=== PATIENT | male | born 1990 | race Caucasian/White ===

== ENCOUNTER → 2022-05-18 | Outpatient (CLI) | payer BC, OTHER | LOC: EDSEX 11:10 → M LABSMTC 11:13 | PROVIDERS: ATTEND Anesthesiology | DX: Z01.818 Encounter for other preprocedural examination (principal); Z11.52 Encounter for screening for COVID-19 ==

== ENCOUNTER 2022-05-22 06:08 | Observation (INO) | payer BC, OTHER ==
[2022-05-22] VITALS (8 sets, daily range): BP systolic 102–106; BP diastolic 59–63
[~2022-05-22] VITALS: Ht 165.1 cm; Wt 82.0 kg
[2022-05-22] MEDS ORDERED: LR 1,000 ML IV SCH (06:40)
[2022-05-22] MEDS ORDERED: HEPARIN SOD (PORCINE) 5000UNITS/ML 1ML VIAL/SYRINGE SQ ONE (06:45)
[2022-05-22] MEDS ORDERED: ceFAZolin SOD 2 GM in IV 1 EA IV ONE ×2 (07:00→16:00)
[2022-05-22] MEDS ORDERED: BUPIVACAINE HCL 0.25% 10ML VIAL As Ordered ONE (07:16)
[2022-05-22] MEDS ORDERED: GENTAMICIN SULF 80MG/2ML VIAL As Ordered ONE (07:16)
[2022-05-22] MEDS ORDERED: BUPIVACAINE LIPOSOME/PF 1.3% 20ML VIAL (13.3MG/ML)(EXPAREL) As Ordered ONE (07:17)
[2022-05-22] MEDS ORDERED: propofoL 200 MG/20 ML VIAL As Ordered ONE (07:19)
[2022-05-22] MEDS ORDERED: fentaNYL 250 MCG/5 ML INJECTION As Ordered ONE (07:19)
[2022-05-22] MEDS ORDERED: MIDAZOLAM INJ 2MG/2ML VIAL (J2250 PER 1MG) As Ordered ONE (07:20)
[2022-05-22] MEDS ORDERED: dexameTHASONE 4 MG/ML 1ML VIAL (J1100 PER 1MG) As Ordered ONE (07:25)
[2022-05-22] MEDS ORDERED: ROCURONIUM BROMIDE 50 MG/5 ML VIAL As Ordered ONE ×2 (07:25→08:32)
[2022-05-22] MEDS ORDERED: PHENYLephrine 500MCG 5ML (100MCG/ML) SYRINGE As Ordered ONE (08:14)
[2022-05-22] MEDS ORDERED: ePHEDrine SULFATE 25 MG/5 ML(5MG/ML) SYRINGE As Ordered ONE (08:31)
[2022-05-22] MEDS ORDERED: SUGAMMADEX SODIUM 500 MG/5 ML VIAL (BRIDION) As Ordered ONE (08:50)
[2022-05-22] MEDS ORDERED: ACETAMINOPHEN 1000MG 100ML IV BTL (OFIRMEV) (J0131 PER 10MG) As Ordered ONE (08:50)
[2022-05-22] MEDS ORDERED: SEVOFLURANE INHAL SOLN 250 ML BTL As Ordered ONE (08:50)
[2022-05-22] MEDS ORDERED: HYDROmorphone HCL 2MG/ML 1ML VIAL As Ordered ONE (08:50)
[2022-05-22] MEDS ORDERED: ONDANSETRON 4MG 2ML VIAL As Ordered ONE (09:00)
[2022-05-22] MEDS ORDERED: LACRILUBE (AKWA TEARS) OPHTH OINT 3.5 GM As Ordered ONE (09:02)
[2022-05-22] MEDS ORDERED: ACETAMINOPHEN TAB 650MG DOSE (2X325MG) PO PRN (11:25)
[2022-05-22] MEDS ORDERED: ONDANSETRON 4MG 2ML VIAL IV PRN (11:25)
[2022-05-22] MEDS ORDERED: traMADol 50 MG TAB PO PRN (11:25)
[2022-05-22] MEDS: LR 1,000 ML IV SCH ×2 (13:51→23:49)
[2022-05-23 02:00] VITALS: BP 106/61
[2022-05-23 06:00] VITALS: BP 110/72
[2022-05-23] MEDS ORDERED: TRAM50TA2 PO (07:59)
[2022-05-23 10:00] VITALS: BP 102/67
== END 2022-05-23 11:45 | disposition home or self-care (01) ==
LOC: EDSEX → M SDC 06:08 → M MS5PR 06:09
PROVIDERS: ADMIT Plastic Surgery Surgery of the Hand; ATTEND Plastic Surgery Surgery of the Hand
DX: F64.9 Gender identity disorder, unspecified (principal); N62 Hypertrophy of breast; Z79.890 Hormone replacement therapy
CPT/HCPCS: 19303; 19350; 88305; 96374; C9290; J0131; J0690; J1100; J1170; J1580; J1644; J2250; J2370; J2405; J3010